=== PATIENT | female | born 1965 | race African-American/Black ===

== ENCOUNTER 2022-01-31 18:11 | Observation (INO) | payer OTHER, SELFPAY ==
--- NOTE | ~2022-01-31 | CT_ITS ---
EXAMINATION: CT brain wo con DATE: 01/31/2022 18:16 INDICATION: Stroke protocol presenting with altered mental status and slurred speech TECHNIQUE: Computed tomography (CT) of the head was performed without intravenous contrast. Sagittal and coronal reconstructions were performed. The mA was adjusted according to patient size. Iterative reconstruction technique was employed. The dose-length product was 605.33 mGy-cm. COMPARISON: None FINDINGS: No acute intracranial hemorrhage, acute infarction or abnormal extra axial fluid collection. Ventricl es are normal and symmetric. No mass/mass effect. The orbits, paranasal sinuses and mastoid air cells are normal. IMPRESSION: 1. No acute intracranial process. Reviewed, dictated and finalized at location A. UREMENT TECHNICIAN
--- NOTE | ~2022-01-31 | CT_ITS ---
EXAMINATION: CT diagnostic chest w con DATE: 01/31/2022 19:25 INDICATION: chest pain TECHNIQUE: Computed tomography (CT) of the chest was performed with 75 mL Omnipaque-350 intravenous c ontrast. Additional 3D reconstructions utilizing coronal maximum intensity projection (MIP) were perf ormed. Automated exposure control and iterative reconstruction technique were employed. The dose-marilyn th product was 747.35 mGy-cm. COMPARISON: None FINDINGS: Small lung lungs with mild respiratory motion and subsegmental atelectasis at the bilateral lung base s. No pneumonia, pulmonary edema, pleural effusion or pneumothorax. Mild cardiomegaly. No pericardial effusion. Thoracic aorta is normal in caliber with no aneurysm or dissection. No pathologically enla rged thoracic lymphadenopathy. Small sliding-type hiatal hernia. Visualized upper abdomen is otherwis e unremarkable. Moderate to severe thoracic spondylosis. IMPRESSION: 1. No aortic aneurysm/dissection or acute cardiopulmonary disease. 2. Mild subsegmental atelectasis at the lung bases likely due to partial expiratory phase of imaging. 3. Small sliding-type hiatal hernia. Reviewed, dictated and finalized at location A. AL ARCHITECT IMPRESSION: 1. No aortic aneurysm/dissection or acute cardiopulmonary disease. 2. Mild subsegmental atelectasis at the lung bases likely due to partial expira tory phase of imaging. 3. Small sliding-type hiatal hernia.
--- NOTE | ~2022-01-31 | NM_ITS ---
EXAMINATION: NM alvaro stress w perfusion DATE: 02/02/2022 14:53 INDICATION: Abnormal echocardiogram TECHNIQUE: Rest images were obtained following intravenous administration of 10 mCi Tc99m tetrofosmin (Myoview). The patient was infused intravenously with Lexiscan (Regadenoson). Then, 31.2 mCi Tc99m t etrofosmin (Myoview) was administered intravenously, and stress images were obtained in supine positi on. Additional post stress images were obtained in the prone position. Data was reconstructed into sh ort axis and horizontal and vertical long axis SPECT images. Gated SPECT images were also obtained. COMPARISON: None. FINDINGS: There is no definite reversible or fixed perfusion abnormality to suggest ischemia or infar ction. There is normal left ventricular chamber size, wall motion and ejection fraction. Left ventr icular ejection fraction measures 57%. IMPRESSION: 1. Normal myocardial perfusion at rest and during stress. 2. Left ventricular ejection fraction measuring 57%. Reviewed, dictated and finalized at location A. E CLOSER
--- NOTE | ~2022-01-31 | XR_ITS ---
EXAMINATION: XR chest 1V portable DATE: 01/31/2022 18:56 INDICATION: Chest pain. Facial droop. TECHNIQUE: frontal view of the chest was obtained. COMPARISON: Chest radiograph dated 03/11/2009 FINDINGS: Mild bilateral infrahilar opacities. No pleural effusion or pneumothorax. The cardiomediastinal silho uette is within normal limits for AP technique and accounting for decreased lung volumes. IMPRESSION: 1. Mild bilateral infrahilar opacities which could represent bronchovascular crowding and atelectasis due to the decreased lung volumes, mild pulmonary edema or pneumonia. Reviewed, dictated and finalized at location A. KING MACHINE OPERATOR IMPRESSION: 1. Mild bilateral infrahilar opacities which could represent bronchovascular cr owding and atelectasis due to the decreased lung volumes, mild pulmonary edema or pneumonia.
--- NOTE | ~2022-01-31 | MR_ITS ---
EXAMINATION: MR brain/brain stem wo con EXAM DATE: 02/01/2022 12:34 INDICATION: Abnormal speech/Blurry vision. TECHNIQUE: Magnetic resonance imaging (MRI) of the brain/brain stem obtained without contrast. Dalila al T1, axial diffusion, gradient echo (T2*), T1, T2, FLAIR sequences obtained. Correlation is made t o brain carotid CT from 01/31/2022. FINDINGS: There are no areas of restricted diffusion to suggest acute infarction. There is no acute hemorrhage seen on the T2*, a hemosiderin sensitive sequence. No intraparenchymal brain mass. The ve ntricles are normal in size. There are no extra-axial collections. Flow voids are seen in the cereb ral arteries on the T2-weighted sequences consistent with their expected patency. The orbits are unr emarkable. Soft tissue is unremarkable. IMPRESSION: 1. Unremarkable brain MRI examination. Reviewed, dictated and finalized at location A. OR MEDICAL DIRECTOR
--- NOTE | ~2022-01-31 | CT_ITS ---
EXAMINATION: CTA BRAIN/CAROTID DATE: 01/31/2022 19:27 INDICATION: Slurred speech and facial droop TECHNIQUE: Computed tomographic angiography (CTA) of the head and neck was performed with 100 mL Omni paque-350 intravenous contrast. Multiplanar reconstructions and maximum intensity projection 3D-recon structions of the carotid arteries and of the intracranial arteries were created by the technologist on a separate workstation. Automated exposure control and iterative reconstruction technique were emp loyed.The dose-length product was 1172.55 mGy-cm. COMPARISON: None. FINDINGS: Carotid arteries: There is minimal atherosclerotic plaque with 0% stenosis of the right carotid bulb relative to normal distal artery lumen diameter (NASCET criteria). There is no evident atherosclerotic plaque with 0% s tenosis of the left carotid bulb relative to normal distal artery lumen diameter. Moderate disc heigh t loss at C5-C6 with ossification along the posterior longitudinal ligament this level resulting in m ild central canal stenosis. Otherwise minimal cervical spondylosis. Mild to moderate spondylosis in t he upper thoracic spine. Intracranial arteries There is no hemodynamically significant stenosis in the vertebral, basilar and internal carotid arter ies. Vertebral arteries are codominant. There are no aneurysms identified. Both A1 and P1 segments a re patent. There are also patent bilateral posterior to indicating arteries. Cerebral arterial arbori zation appears symmetric. IMPRESSION: 1. 0% stenosis of the left and right carotid bulbs relative to normal distal artery lumen diameter (N ASCET criteria). 2. Normal cerebral CT angiogram. Reviewed, dictated and finalized at location A. LOADING MACHINE ADJUSTER IMPRESSION: 1. 0% stenosis of the left and right carotid bulbs relative to normal distal ar pranay lumen diameter (NASCET criteria). 2. Normal cerebral CT angiogram.
[2022-01-31 18:15] VITALS: BP 181/92; PULSE 96; RESP 18; O2SAT 98
[2022-01-31 18:18] VITALS: BP 181/92; PULSE 96; RESP 18; TEMP 36.9; O2SAT 100
--- NOTE | 2022-01-31 18:22 | ED.GENADULT ---
HPI - General Adult General Chief complaint: Neuro Symptoms/Deficit Stated complaint: htn/garbled speech Source: RN notes reviewed History of Present Illness HPI narrative: Patient presents emergency department from work via EMS for chest pain. Patient states that approximately at 1500 today she began to not feel well she states she had some tightness in her midsternal chest and at that time she gone and told me where she not feel well and taking her blood pressure noted to be elevated there is also concerned that at one point the patient did have some slurred speech however that is resolved EMS was called and the patient was noted to have normal speech with no focal deficits at that time and was complained of chest pain. At that time the patient was transferred for further evaluation .. The patient was noted to have elevated blood pressure and denies a history of elevated blood pressure. This time she notes midsternal chest pressure described as a tightness that does not radiate. Patient notes generalized weakness but notes that she has no unilateral weakness. States she has been under increased stress that she has a daughter with disabilities at home has been needing increased care. Patient denies any fevers or chills vision changes shortness of breath abdominal pain nausea vomiting Related Data Allergies Allergy/AdvReac Type Severity Reaction Status Date / Time No Known Allergies Allergy Verified 01/31/22 18:23 Review of Systems Review of Systems: Gen.: Denies fevers or chills Eyes: Denies eye pain or visual change ENT: Denies congestion Respiratory: Denies shortness of breath or cough CV: Patient reports chest GI: Denies abdominal pain nausea, emesis or diarrhea Musculoskeletal: Denies back pain or muscle pain Neuro: Denies numbness, tingling, weakness or focal weakness slurred speech per [facility] Skin: Denies rash Except as documented, all other systems reviewed and negative [facility] Past Medical History Medical History (Updated 01/31/22 @ 20:33 by Geronimo Bo DO) Patient denies significant medical history Social History Social History (Updated 01/31/22 @ 20:31 by Geronimo Bo DO) Smoking status: Never smoker Exam Narrative: APPEARANCE: No acute distress, nontoxic, resting in bed HEENT: Normocephalic, atraumatic, OMM, EYES: PERRL, EOMI NECK: Supple, nontender, full range of motion without pain, no meningismus RESPIRATORY: No respiratory distress, clear to auscultation bilaterally with no rhonchi wheezing or rales CARDIOVASCULAR: RRR s murmur ABDOMINAL: Soft, nontender, nondistended MUSCULOSKELETAL: Moves all extremities. No clubbing, cyanosis or edema. NEURO: A and O ?3, following commands, speech normal, no facial droop, muscle strength 4 out of 5 in the bilateral upper extremities and 4 out of 5 in the bilateral lower extremities, no pronator drift SKIN:: Warm, dry. Normal Color PSYCHIATRIC: Normal affect/mood Course Course Emergency Course: She states she is feeling much better following Ativan moving all extremities with no difficulty. States chest pain is resolved On repeat exams patient's muscle strength is 5 out of 5 in bilateral upper and lower extremities patient continues to have no slurred speech no facial droop patient continues to have no pronator drift sensation is equal bilaterally and the arms and the legs Discussed Dr. Rich presentation work-up agrees with admission at this time Discussed with patient and family results of workup and diagnosis. Discussed need for admission. Patient and family understand and agree to current treatment plan Vital Signs Vital signs: Vital Signs Pulse Rate 96 01/31/22 18:15 Respiratory Rate 18 01/31/22 18:15 Blood Pressure 181/92 H 01/31/22 18:15 Pulse Oximetry 98 01/31/22 18:15 Temperature 98.4 F 01/31/22 18:18 Pulse Rate 86 01/31/22 19:50 Respiratory Rate 16 01/31/22 19:50 Blood Pressure 160/78 H 01/31/22 19:50 Pulse Ox
[2022-01-31 18:24] LABS: Glucose Point of Care 114 mg/dl (65-105)
--- NOTE | 2022-01-31 18:28 | ECG_ITS ---
Measurements Intervals [place] Rate: 103 P: 44 WA: 140 QRS: 9 QRSD: 97 T: 25 QT: 348 QTc: 457 Interpretive Statements SINUS TACHYCARDIA POSSIBLE LEFT ATRIAL ENLARGEMENT [-0.1mV P-WAVE IN V1/V2] CANNOT RULE OUT SEPTAL INFARCT, AGE UNDETERMINED BASELINE ARTIFACT ABNORMAL ECG NO PREVIOUS ECG AVAILABLE FOR COMPARISON Electronically Signed On 02-01-2022 14:46:57 WEAPONS AND TACTICS INSTRUCTOR by Ricci Hewitt M.D.
[2022-01-31 18:53] VITALS: BP 154/76; PULSE 92; RESP 20; O2SAT 99
--- NOTE | 2022-01-31 18:55 | PC.NURSE ---
Pt states she has had a hysterectomy.
[2022-01-31 18:57] LABS: Basophils Absolute Auto 0.1 K/mm3 (0.0-0.1); Basophils Percent Auto 0.8 % (0.2-1.2); Eosinophils Absolute Auto 0.1 K/mm3 (0-0.3); Eosinophils Percent Auto 0.8 % (0-4.4); Hemoglobin 12.9 g/dL (12.0-15.0); Immature Granulocyte Absolute 0.04 K/mm3 (0.00-0.031); Immature Granulocyte Percent A 0.4 % (0-0.5); Lymphocytes Absolute Auto 3.49 K/mm3 (0.9-3.2); Lymphocytes Percent Auto 31.3 % (18.3-44.2); Mean Corpuscular HGB Conc 30.7 g/dl (32-36); Mean Corpuscular Hemoglobin 27.6 pg (26-34); Mean Corpuscular Volume 89.9 fl (80-100); Mean Platelet Volume 9.5 fl (7.4-10.4); Monocytes Absolute Auto 1.2 K/mm3 (0.1-0.6); Monocytes Percent Auto 10.5 % (2.6-8.5); Neutrophils Absolute Auto 6.3 K/mm3 (1.3-6.7); Neutrophils Percent Auto 56.2 % (45.5-73.1); Platelet Count Result 433 k/mm3 (150-375); Red Blood Count 4.67 M/mm3 (4.2-5.4); Red Cell Distribution Width 14.6 % (11.5-14.5); White Blood Count 11.1 K/mm3 (4.5-10.0)
[2022-01-31 18:59] LABS: Prothrombin Time 12.4 Seconds (11.1-14.7)
[2022-01-31 19:00] LABS: Partial Thromboplastin Time 23.7 SECONDS (22.3-36.8)
[2022-01-31 19:03] LABS: Alanine Aminotransferase 20 U/L (4-35); Albumin Level 4.7 g/dL (3.5-5.1); Alkaline Phosphatase 87 U/L (38-126); Anion Gap 8 mmol/L (8-16); Aspartate Amino Transferase 29 U/L (14-36); Bilirubin,Total 0.5 mg/dL (0.2-1.3); Blood Urea Nitrogen 16 mg/dL (7-17); Calcium 8.9 mg/dL (8.4-10.2); Carbon Dioxide 28 mmol/L (22-30); Chloride 104 mmol/L (98-107); Estimated CRCL calculation 63 ml/min; Estimated Glomerular Filt Rate > 60; Glucose 106 mg/dL (65-110); Potassium 3.6 mmol/L (3.4-5.0); Sodium 140 mmol/L (137-145)
[2022-01-31 19:05] LABS: Alanine Aminotransferase 21 U/L (4-35); Albumin Level 4.8 g/dL (3.5-5.1); Alkaline Phosphatase 92 U/L (38-126); Anion Gap 7 mmol/L (8-16); Aspartate Amino Transferase 42 U/L (14-36); Bilirubin,Total 0.5 mg/dL (0.2-1.3); Blood Urea Nitrogen 17 mg/dL (7-17); Calcium 8.9 mg/dL (8.4-10.2); Carbon Dioxide 30 mmol/L (22-30); Chloride 103 mmol/L (98-107); Estimated CRCL calculation 63 ml/min; Estimated Glomerular Filt Rate > 60; Glucose 104 mg/dL (65-110); Potassium 3.7 mmol/L (3.4-5.0); Sodium 140 mmol/L (137-145)
[2022-01-31 19:11] LABS: Add Urine Microscopic? YES; Appearance Urine Clear (Clear); Bilirubin Urine Negative (Negative); Blood Urine 1+ (Negative); Color Urine Yellow (Yellow); Glucose Urine UA Negative (Negative); Ketones Urine Negative (Negative); Leukocyte Esterase Ur Negative LEU/UL (Negative); Mucus Urine Rare /lpf; Nitrate Urine Negative (Negative); Protein Urine Negative (Negative); Specific Grav Ur 1.018 (1.001-1.035); Squamous Epithelial Cell Urine Rare /hpf (Few); WBC Urine 0-3 /hpf
[2022-01-31 19:12] LABS: Troponin I < 0.012 ng/mL (0.000-0.034)
[2022-01-31 19:13] LABS: Troponin I < 0.012 ng/mL (0.000-0.034)
--- NOTE | 2022-01-31 19:30 | ECG_ITS ---
Measurements Intervals [place] Rate: 96 P: 39 RI: 165 QRS: 27 QRSD: 97 T: 18 QT: 365 QTc: 461 Interpretive Statements SINUS RHYTHM BASELINE ARTIFACT CANNOT RULE OUT SEPTAL INFARCT, AGE UNDETERMINED ABNORMAL ECG COMPARED TO ECG 01/31/2022 18:20:01 HEART RATE HAS DECREASED Electronically Signed On 02-01-2022 14:51:52 MEDICAL CODING MANAGER by Ricci Hewitt M.D.
--- NOTE | 2022-01-31 19:39 | PC.NURSE ---
Contact info for Gabriel Carrion, pt son, is [phone]
[2022-01-31] MEDS: LORazepam INJ (*CRX) 2 MG/ML VIAL 0.5 MG IV PUSH (19:49)
[2022-01-31 19:50] VITALS: BP 160/78; PULSE 86; RESP 16; O2SAT 97
[2022-01-31 20:20] VITALS: PULSE 81
--- NOTE | 2022-01-31 20:35 | PM.IMHP ---
H&P: HPI History of Present Illness Date/Time: 01/31/22 20:35 Chief Complaint: Speech difficulty. Narrative: This is a 56-year-old female with no significant past medical history. 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 Upon arrival to emergency room patient was back to her usual her blood pressure was still elevated though. Preliminary workup was actually known unrevealing for acute stroke. At the time of my visit patient did state that she has been under a great amount of stress at home for the last 2-3 weeks. Due to family situation. She denies any fevers, any rigors ,any chills, any cough, sputum production ,shortness of breath ,abdominal pain, nausea ,vomiting ,diarrhea, she had a frontal headache earlier in the day. Chest x-ray showed infiltrates in the right lower lobe. Patient has been admitted for further evaluation management and treatment. Review of Systems Review of Systems: Frontal headache, garbled speech, blurry vision. Constitutional: Constitutional: Denies chills, Denies fatigue, Denies fever(s), Denies malaise, Denies night sweats and Denies weakness Eyes: Eyes: Reports blurry vision ENT: Denies dysphagia, Denies vertigo, Denies dizziness, Denies nasal congestion, Denies nasal discharge, Denies nasal obstruction and Denies odynophagia Cardiovascular: Cardiovascular: Reports chest pain at rest, Denies pedal edema, Denies leg edema, Denies lightheadedness, Denies radiating jaw, neck or arm pain, Denies palpitations, Denies dyspnea, Denies dyspnea on exertion, Denies orthopnea and Denies paroxysmal nocturnal dyspnea Respiratory: Respiratory: Denies chest congestion, Denies cough, Denies excessive phlegm production, Denies dyspnea on exertion and Denies wheezing Gastrointestinal: Gastrointestinal: Denies abdominal pain, Denies dyspepsia, Denies heartburn, Denies diarrhea, Denies nausea and Denies vomiting Genitourinary: Genitourinary: Denies dysuria and Denies flank pain Musculoskeletal: Musculoskeletal: Denies arthralgias and Denies joint swelling Integumentary/Breasts: Skin/Breast: Denies rash Neurologic: Reports Abnormal speech present, Denies vertigo, Denies dizziness, Denies syncope, Reports headache(s), Denies focal weakness and Denies Sensory deficit (Neuro) Endocrine: Endocrine: Denies cold intolerance, Denies flushing, Denies heat intolerance, Denies polyphagia, Denies polydipsia and Denies palpitations Hematologic/Lymphatic: Hematologic/Lymphatic: Reports no additional hematologic/lymphatic complaints and Reports as per HPI Allergic/Immunologic: Allergic/Immunologic: Reports no additional allergic/immunologic complaints and Reports as per HPI [facility] Past Medical History Medical History (Updated 02/01/22 @ 03:27 by Thomas Cristobal MD) Patient denies significant medical history Social History Social History (Updated 01/31/22 @ 20:31 by Geronimo Bo DO) Smoking status: Never smoker Alcohol intake: current Drinks per week: 1 Substance use: never Substance use type: does not use Spiritual care concerns: No Meds Home Medications and Allergies Home Medications Medication Instructions Recorded Confirmed Type No Home Medications 01/31/22 01/31/22 History Allergies Allergy/AdvReac Type Severity Reaction Status Date / Time No Known Allergies Allergy Verified 01/31/22 18:23 Vital Signs Vital Signs - 24 hr 01/31/22 18:15 01/31/22 18:18 01/31/22 18:53 Temperature 98.4 F Pulse Rate 96 96 92 Respiratory Rate 18 18 20 Blood Pressure 181/92 H 181/92 H 154/76 H Pulse Oximetry 98 100 99 01/31/22 19:50 Temperature Pulse Rate 86 Respiratory Rate 16 Blood Pressure 160/78 H Pulse
--- NOTE | 2022-01-31 20:54 | PC.NURSE ---
Pt able to hold weigh at side of bed and turn self on cart. Pt reports numbness and tingling to hands.
--- NOTE | 2022-01-31 21:14 | PC.NURSE ---
Faxed sbar to floor.
[2022-01-31 22:00] VITALS: PULSE 93
--- NOTE | 2022-01-31 22:15 | ADMGEN ---
This patient, Bessy Wright, was admitted to IMU Room 200-01. Patient/family oriented to hospital policies and general routines including ID bracelet, bed and alarms, visiting hours, pain management, procedures, bathroom and other care routines, personal items, smoking policy, room service/diet, and visiting hours. Information on how to activate the Rapid Response Team has been discussed. Patient/Family are encouraged to report perceived risks to care and to ask questions if they do not understand what they are told or what they should do.
[2022-01-31 22:16] VITALS: BMI 41.7
[2022-01-31 23:18] LABS: Troponin I < 0.012 ng/mL (0.000-0.034)
[2022-02-01] VITALS (15 sets, daily range): BP systolic 124–150; BP diastolic 65–96; PULSE 75–100; RESP 15–22; TEMP 35.4–36.7; O2SAT 96–100
--- NOTE | 2022-02-01 | ECHO_ITS ---
Patient Info Name: Bessy Wright Age: 56 years : 1965 Gender: Female Ht: 57 in Wt: 192 lbs BSA: 1.93 m2 HR: 86 bpm BP: 136 / 69 mmHg Heart Rhythm: Sinus Rhythm Technical Quality: Fair Exam Date: 02/01/2022 7:48 AM Exam Location: [facility] Pulmonary Patient Status: Outpatient Admit Date: 01/31/2022 Staff Ordering Physician: Thomas Cristobal MD Centerpuncher: Rosaline Johnston RDCS Attending Provider: Thomas Cristobal MD Referring Physician: Levar PRYOR; Exam Type: CA echo doppler color flow Study Info Indications - chest pain/high blood pressure Complete two-dimensional, color flow and Doppler transthoracic echocardiogram is performed. Summary 1. Complete two-dimensional, color flow and Doppler transthoracic echocardiogram is performed. 2. Normal LV size, [id number] LVH, low normal LV systolic function, ejection fraction 50-55%. Anterolateral wall appears mildly hypokinetic. Normal diastolic function. Normal mitral and aortic valve structure. Mild tricuspid and pulmonic regurgitation, RVSP 28 mmHg. Sinus rhythm. Left Ventricle Left ventricular chamber dimension is normal. Left ventricular systolic function is normal, estimated at 50-55%. There is mildly increased left ventricular wall thickness. The left ventricular diastolic function is normal. Right Ventricle Right ventricular chamber dimension is normal. Right ventricular systolic function is normal. Left Atria Left atrial chamber dimension is normal. Right Atria Right atrial chamber dimension is normal. Aortic Valve The aortic valve is normal. There is no aortic valve stenosis. Pulmonic Valve The pulmonic valve is normal. There is mild pulmonic regurgitation. Mitral Valve The mitral valve has normal leaflets. There is no mitral valve regurgitation. Tricuspid Valve The tricuspid valve leaflets are normal. There is mild tricuspid valve regurgitation. Pericardium/Pleural The pericardium appears normal. Inferior Vena Cava Normal inferior vena cava with >50% collapse upon inspiration consistent with normal right atrial pressure, 8 mmHg. Aorta The aortic root size at the sinus of Valsalva is normal. There is mild aortic atherosclerosis. Left Ventricular Outflow Tract Name Value Normal LVOT 2D LVOT Diameter 2.0 cm LVOT Doppler LVOT Peak Gradient 3 mmHg LVOT Mean Gradient 2 mmHg LVOT VTI 15 cm LVOT VTI/AV VTI Ratio 0.6 LVOT Stroke Volume 51 ml LVOT CO 3.5 l/min LVOT CI 1.8 l/min/m2 Pulmonic Valve Name Value Normal RVOT Doppler RVOT Peak Gradient 1 mmHg PV Doppler
[2022-02-01 01:43] LABS: Troponin I < 0.012 ng/mL (0.000-0.034)
[2022-02-01] MEDS: cefTRIAXone 2 GM in SODIUM CHLORIDE 0.9% IV 100 ML 200 ML IVPB (04:20)
[2022-02-01 04:29] LABS: Basophils Absolute Auto 0.1 K/mm3 (0.0-0.1); Basophils Percent Auto 0.9 % (0.2-1.2); Eosinophils Absolute Auto 0.1 K/mm3 (0-0.3); Eosinophils Percent Auto 1.3 % (0-4.4); Hematocrit 38.9 % (37.0-47.0); Hemoglobin 12.1 g/dL (12.0-15.0); Immature Granulocyte Absolute 0.02 K/mm3 (0.00-0.031); Immature Granulocyte Percent A 0.2 % (0-0.5); Lymphocytes Absolute Auto 3.13 K/mm3 (0.9-3.2); Lymphocytes Percent Auto 31.3 % (18.3-44.2); Mean Corpuscular HGB Conc 31.1 g/dl (32-36); Mean Corpuscular Hemoglobin 27.9 pg (26-34); Mean Corpuscular Volume 89.8 fl (80-100); Mean Platelet Volume 9.5 fl (7.4-10.4); Monocytes Absolute Auto 1.1 K/mm3 (0.1-0.6); Monocytes Percent Auto 11.4 % (2.6-8.5); Neutrophils Absolute Auto 5.5 K/mm3 (1.3-6.7); Neutrophils Percent Auto 54.9 % (45.5-73.1); Platelet Count Result 362 k/mm3 (150-375); Red Blood Count 4.33 M/mm3 (4.2-5.4); Red Cell Distribution Width 14.6 % (11.5-14.5)
[2022-02-01 04:53] LABS: Acanthocytes 1+ (NORMAL); Platelet Estimate Adequate (Adequate)
[2022-02-01 05:25] LABS: Anion Gap 9 mmol/L (8-16); Blood Urea Nitrogen 13 mg/dL (7-17); Calcium 8.5 mg/dL (8.4-10.2); Carbon Dioxide 21 mmol/L (22-30); Chloride 108 mmol/L (98-107); Estimated Glomerular Filt Rate > 60; Glucose 133 mg/dL (65-110); Potassium 4.9 mmol/L (3.4-5.0); Sodium 138 mmol/L (137-145)
[2022-02-01] MEDS: amLODIPine BESYLATE 5 MG TABLET PO (08:25)
--- NOTE | 2022-02-01 12:08 | WPDNEUROPN ---
Progress Note: A&P Additional Plan 1.Uncontrolled hypertension 2.brief lasting speech dysfunction could be related to the hypertension but the possibility of the TIA entertained all the studies up until now are unrevealing patient will continue on aspirin along with the antihypertensive medication. 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 Patient past history is negative for smoking, 1 drink per week for alcohol, no substance abuse, no home medications, and initial vital signs in the emergency room were stable except the blood pressure of 181/92 which came down to 154/76, normal BMP normal troponin and normal hepatic enzymes except borderline AST of 42, evaluation included the CT chest diagnostic documenting only small sliding type hiatal hernia with no acute parenchyma toes disease 0% stenosis of the left and right carotid bulb and normal CT angiogram including the cerebral hemispheres, negative CT scan of the head Review of Systems Review of Systems: All systems reviewed & are unremarkable except as noted in HPI and below Exam Narrative: examination today revealed her to be awake alert cooperative in no obvious acute distress, head normocephalic with no cranial bruit ,ear nose throat examination normal ,neck supple with no cervical bruit, no thyromegaly, no lymphadenopathy, heart regular with no murmur ,lungs clear to auscultation with no rhonchi or crepitation ,abdomen is soft with normal bowel sounds no organomegaly, neurologically she was awake alert ,oriented x3, speech nor dysphasic not dysarthric or dysphonic ,pupils round regular, mcwilliams of the vision full, extraocular movement full, face symmetrical, tongue midline, uvula midline motor examination revealed her to have normal strength and tone in upper and lower extremities proximally and distally and deep tendon reflexes 1+ at the biceps triceps knees and ankle plantars were downgoing there was no evidence of sensory or cerebellar deficit. Objective Data Vital Signs Vital Signs: Vital Signs - 24 hr 01/31/22 18:15 01/31/22 18:18 01/31/22 18:53 Temperature 36.9 C Pulse Rate 96 96 92 Respiratory Rate 18 18 20 Blood Pressure 181/92 H 181/92 H 154/76 H Pulse Oximetry 98 100 99 01/31/22 19:50 01/31/22 20:20 01/31/22 22:00 Temperature Pulse Rate 86 81 93 Respiratory Rate 16 Blood Pressure 160/78 H Pulse Oximetry 97 02/01/22 00:00 02/01/22 02:00 02/01/22 04:00 Temperature 35.6 C L 35.4 C L Pulse Rate 81 83 87 Respiratory Rate 16 16 Blood Pressure 150/86 H 136/69 Pulse Oximetry 96 100 02/01/22 06:00 02/01/22 07:57 02/01/22 08:00 Temperature 35.8 C L Pulse Rate 86 100 83 Respiratory Rate 22 H 18 Blood Pressure 145/84 H Pulse Oximetry 100 02/01/22 10:00 02/01/22 12:00 Temperature 36.7 C Pulse Rate 97 91 Respiratory Rate 15 Blood Pressure 124/65 Pulse Oximetry 99 Intake/Output Intake/Output: Intake & Output 01/29/22 01/30/22 01/31/22 02/01/22 23:59 23:59 23:59 23:59 Intake Total 590 Balance 590 Meds/Results Medications: Active Medications Generic Name Dose Route Start Last Admin Trade Name Freq PRN Reason Stop Dose Admin Amlodipine Besylate 5 mg 02/01/22 09:00 02/01/22 08:25 Amlodipine Besylate 5 Mg Tablet PO 5 mg QAM DERRELL Administration Aspirin 81 mg
[2022-02-01] MEDS: ASPIRIN 81 MG CHEWABLE TABLET PO (13:57)
[2022-02-01] MEDS: ATORVASTATIN 20 MG TABLET PO (13:57)
--- NOTE | 2022-02-01 15:20 | PM.IMPN ---
Progress Note: A&P Additional Plan 56 years old F with no PMH presented to ER with garbled speech, found to have elevated BP. Admitted with concens for TIA/?hypertensive emergency 1)Uncontrolled HTN+/-?TA: c/w tele Add ASA, Lipitor Neuro checks Await MRI brain, echo Neuro consult Obtain lipid panel and Hemoglobin A1C BP optimization, c/w norvasc ?Anxiety component, add PRN oral ativan Melatonin for sleep PT/OT 2)DVT ppx: SCD 3)?hematuria: Repeat UA in few weeks 4)Code:Full 5)Dispo:pending improvement, ?potential discharge home in AM if ok with Neurology Time Spent With Patient Time with patient: 25 - 35 minutes Subjective Date/time seen: 02/01/22 15:20 Interval history: anxious, denies headache, blurry vision, chest pain Was unable to sleep last night, has some issues at home related to her daughter which seems to be affecting her Review of Systems Review of Systems: All systems reviewed & are unremarkable except as noted in HPI and below Constitutional: Constitutional: Reports no additional constitutional complaints Eyes: Eyes: Reports no additional eye complaints ENT: Reports as per HPI Cardiovascular: Cardiovascular: Reports no additional cardiovascular complaints Respiratory: Respiratory: Reports no additional respiratory complaints Gastrointestinal: Gastrointestinal: Reports no additional gastrointestinal complaints Musculoskeletal: Musculoskeletal: Reports no additional musculoskeletal complaints Neurologic: Reports system reviewed and no additional complaints, except as documented Psychiatric: Psychiatric: Reports anxiety Exam Const: General: no acute distress HENMT: Mouth: Yes moist mucous membranes Eyes: Pupils: Equal, round and reactive pupils present Neck: Neck: supple Resp: Auscultation: clear to auscultation bilaterally Cardio: Rate: regular rate Rhythm: regular rhythm GI: GI Palp: Yes Soft to palpation Auscultation: normal bowel sounds Skin: General skin exam: normal color Neuro: Cognition (Neuro): normal cognition Psych: Mental Status: mental status grossly normal Affect: Sad affect present and Anxious affect present Objective Data Vital Signs Vital Signs: Vital Signs - 24 hr 01/31/22 18:15 01/31/22 18:18 01/31/22 18:53 Temperature 98.4 F Pulse Rate 96 96 92 Respiratory Rate 18 18 20 Blood Pressure 181/92 H 181/92 H 154/76 H Pulse Oximetry 98 100 99 01/31/22 19:50 01/31/22 20:20 01/31/22 22:00 Temperature Pulse Rate 86 81 93 Respiratory Rate 16 Blood Pressure 160/78 H Pulse Oximetry 97 02/01/22 00:00 02/01/22 02:00 02/01/22 04:00 Temperature 96.1 F L 95.8 F L Pulse Rate 81 83 87 Respiratory Rate 16 16 Blood Pressure 150/86 H 136/69 Pulse Oximetry 96 100 02/01/22 06:00 02/01/22 07:57 02/01/22 08:00 Temperature 96.5 F L Pulse Rate 86 100 83 Respiratory Rate 22 H 18 Blood Pressure 145/84 H Pulse Oximetry 100 02/01/22 10:00 02/01/22 12:00 Temperature 98.0 F Pulse Rate 97 86 Respiratory Rate 15 Blood Pressure 124/65 Pulse Oximetry 99 Intake/Output Intake/Output: Intake & Output 01/29/22 01/30/22 01/31/22 02/01/22 23:59 23:59 23:59 23:59 Intake Total 1090 Balance 1090 Meds/Results Medications: Active Medications Generic Name Dose Route Start Last Admin Trade Name Bijanq PRN Reason Stop Dose Admin Amlodipine Besylate 5 mg 02/01/22 09:00 02/01/22 08:25 Amlodipine Besylate 5 Mg Tablet PO 5 mg QAM [facility] Administration Aspirin 81 mg 02/01/22 08:00 02/01/22 13:57 Aspirin 81 Mg Chewable Tablet PO 81 mg DAILY@0800 DERRELL Administration Atorvastatin Calcium 20 mg 02/01/22 09:00 02/01/22 13:57 Atorvastatin 20 Mg Tablet PO 20 mg DAILY [facility] Administration Melatonin 3 mg 02/01/22 21:00 Melatonin 3 Mg Tablet PO [facility] Perflutren Lipid Microsphere 0 ml 02/01/22 03:07 Perflutren Lipid Microspheres 1.5 Ml Vial Diluted To 10 Ml Total Volume I
[2022-02-01] MEDS: METOPROLOL TARTRATE 6.25 MG TABLET PO (20:58)
[2022-02-01] MEDS: MELATONIN 3 MG TABLET PO (20:58)
[2022-02-02] VITALS (11 sets, daily range): BP systolic 137–160; BP diastolic 73–76; PULSE 66–99; RESP 15–20; TEMP 36.3–36.7; O2SAT 97–100
--- NOTE | 2022-02-02 | EST_ITS ---
Patient Info Name: Bessy Wright Age: 56 years : 1965 Gender: Female Ht: 57 in Wt: 180 lbs BSA: 1.86 m2 HR: 74 bpm BP: 119 / 81 mmHg Heart Rhythm: Sinus Rhythm Exam Date: 02/02/2022 12:24 PM Exam Location: [facility] Stress Patient Status: Inpatient Admit Date: 01/31/2022 Staff Ordering Physician: Adam Bailey MD Attending Provider: Refugio Connelly MD Exercise Technologist: Pushpa Grey CT Exercise Physician: Ricci Hewitt MD Exam Type: CA stress alvaro w NM Study Info Indications I27.0 - Primary pulmonary hypertension A regadenoson stress test was performed. Summary 1. No abnormal ST/T wave changes with Lexiscan administration. 2. No arrhythmias were observed during the examination. 3. Please correlate with nuclear medicine images, reported separately. 4. No chest discomfort with stress test. Protocol: Lexiscan Stress ECG Details Stage: REST Duration (min): 0 min : 56 sec HR (bpm): 74 SBP (mmHg): 119 DBP (mmHg): 81 Stage: REST Duration (min): 14 min : 31 sec HR (bpm): 76 SBP (mmHg): 119 DBP (mmHg): 81 Stage: STAGE 1 Duration (min): 0 min : 59 sec HR (bpm): 106 SBP (mmHg): 132 DBP (mmHg): 64 Stage: RECOVERY Duration (min): 1 min : 0 sec HR (bpm): 113 SBP (mmHg): 132 DBP (mmHg): 64 Stage: RECOVERY Duration (min): 2 min : 0 sec HR (bpm): 110 SBP (mmHg): 132 DBP (mmHg): 64 Stage: RECOVERY Duration (min): 3 min : 0 sec HR (bpm): 106 SBP (mmHg): 128 DBP (mmHg): 71 Stage: RECOVERY Duration (min): 3 min : 2 sec HR (bpm): 105 SBP (mmHg): 128 DBP (mmHg): 71 Rest HR: 76 bpm Peak HR: 118 bpm Rest Sys BP: 119 mmHg Peak Sys BP: 132 mmHg Max Pred HR: 165 bpm % Max Pred HR: 72 % Target HR: 140 bpm Max RPP: 15,576 bpm*mmHg BP Response: Normal blood pressure response Termination Reason: Completed protocol Cardiac Symptoms: None Total Time: 1 min : 0 sec Rest Rodriguez BP: 81 mmHg Peak Rodriguez BP: 64 mmHg Total Dose: 0.4 mg Resting ECG Normal sinus rhythm. Cannot rule out septal infarction, age indeterminate. Stress ECG No abnormal ST/T wave changes with Lexiscan administration. Arrhythmias No arrhythmias were observed during the examination. Report Signatures
[2022-02-02 05:08] LABS: Basophils Absolute Auto 0.1 K/mm3 (0.0-0.1); Basophils Percent Auto 0.8 % (0.2-1.2); Eosinophils Absolute Auto 0.1 K/mm3 (0-0.3); Eosinophils Percent Auto 1.6 % (0-4.4); Hematocrit 40.2 % (37.0-47.0); Hemoglobin 12.5 g/dL (12.0-15.0); Immature Granulocyte Absolute 0.04 K/mm3 (0.00-0.031); Immature Granulocyte Percent A 0.5 % (0-0.5); Lymphocytes Absolute Auto 2.43 K/mm3 (0.9-3.2); Lymphocytes Percent Auto 30.7 % (18.3-44.2); Mean Corpuscular HGB Conc 31.1 g/dl (32-36); Mean Corpuscular Hemoglobin 27.3 pg (26-34); Mean Corpuscular Volume 87.8 fl (80-100); Mean Platelet Volume 9.2 fl (7.4-10.4); Monocytes Absolute Auto 0.8 K/mm3 (0.1-0.6); Monocytes Percent Auto 10.5 % (2.6-8.5); Neutrophils Absolute Auto 4.4 K/mm3 (1.3-6.7); Neutrophils Percent Auto 55.9 % (45.5-73.1); Platelet Count Result 365 k/mm3 (150-375); Red Blood Count 4.58 M/mm3 (4.2-5.4); Red Cell Distribution Width 14.5 % (11.5-14.5); White Blood Count 7.9 K/mm3 (4.5-10.0)
[2022-02-02 05:16] LABS: Anion Gap 6 mmol/L (8-16); Blood Urea Nitrogen 12 mg/dL (7-17); Calcium 8.4 mg/dL (8.4-10.2); Carbon Dioxide 23 mmol/L (22-30); Chloride 105 mmol/L (98-107); Cholesterol 144 mg/dL (0-200); Estimated Glomerular Filt Rate > 60; Glucose 119 mg/dL (65-110); HDL Direct 49 mg/dL; Potassium 4.5 mmol/L (3.4-5.0); Sodium 134 mmol/L (137-145); Triglycerides 81 mg/dL (<150)
[2022-02-02 05:22] LABS: LDL Cholesterol Direct 56 mg/dL
[2022-02-02 05:56] LABS: Hemoglobin A1C 6.1 % (<5.7)
[2022-02-02] MEDS: METOPROLOL TARTRATE 6.25 MG TABLET PO (08:28)
[2022-02-02] MEDS: ATORVASTATIN 20 MG TABLET PO (08:29)
[2022-02-02] MEDS: amLODIPine BESYLATE 5 MG TABLET PO (08:29)
[2022-02-02] MEDS: ASPIRIN 81 MG CHEWABLE TABLET PO (08:29)
--- NOTE | 2022-02-02 08:52 | PM.CNCAR ---
Assessment and Plan Additional Plan This is a 56-year-old black female admitted to the hospital not feeling well yesterday felt found to be very hypertensive and has been treated appropriately with improvement in her blood pressure. By report she was having some speech slurring that was creating concern yesterday she does not recall or does not admit to those symptoms today. She has obviously been under a lot of stress at home caring for a disabled daughter. The cardiac concern would be the possibility of subclinical coronary artery disease since my partner interpreted the anterior wall of her LV to be appear hypodynamic on echo. We should screen her for evidence of coronary disease. I believe given her presentation and arthritis we should perform a Lexiscan nuclear stress test. In my opinion that could certainly be done as an outpatient. It is the patient's preference however to do this as an inpatient if possible. I will order the exam for today. She has not yet eaten breakfast at the time of this consultation Adam Bailey MD [facility] History of Present Illness History of Present Illness Consult date/time: 02/02/22 08:52 Consult reason: Other (Wall motion abnormality reported on echo) Reason For Visit: chest pain, slurred speech-resolved Narrative: This is a 56-year-old woman I am seeing at the request of the hospitalist because of an abnormal echocardiogram. She was admitted to the hospital yesterday not feeling well brought here from work and found to have be significantly hypertensive. 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 She is denying those complaints at this time to me. In any event when she was seen in the emergency room she was hypertensive. She was placed on amlodipine at a small dose of metoprolol. Her blood pressure is now improved. She had echocardiogram ordered in that setting. The study was interpreted by my partner as showing some hypokinesis of the anterior/anteroseptal segment of the left ventricle with an overall normal ejection fraction. Her 12 lead electrocardiogram to also does show some anterior precordial Q-waves. In this setting I have been asked to see her in consultation. She says she does not generally experience any symptoms of chest pain pressure or heaviness. She is able to carry on her daily activities without causing any symptoms of chest discomfort or dyspnea. 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 She does have significant arthritis in her knees and is not able to walk vigorously or for long distances. She is denying any symptoms of orthopnea PND or accumulating edema. She feels relatively well this morning. She says she has not seen a physician for medical checkup in something like 10-15 years. She is a lifelong nonsmoker does no knowledge of previous hypertension diabetes or dyslipidemia. There is no family history of prevalent coronary artery disease. She reports to be under severe stress at home because she is caring for a disabled daughter who unfortunately was paralyzed following a motor vehicle accident. Review of Systems Constitutional: Constitutional: Reports no additional constitutional complaints Eyes: Eyes: Reports no additional eye complaints ENT: Reports system reviewed and no additional complaints, except as documented Cardiovascular: Cardiovascular: Reports no additional cardiovascular complaints Respiratory: Respiratory: Reports no additional respiratory complaints Gastrointestinal: Gastrointestinal: Reports no additional gastrointestinal complaints Musculoskeletal: Musculoskeletal: Reports arthralgias Integumentary/Breasts: Skin/Breast: Reports system reviewed and no additional complaints, except as docu Neurologic: Reports as per HPI Endocrine: Endocrine: Reports no additional endocrine complaints Hematologic/Lymphatic:
--- NOTE | 2022-02-02 09:59 | PM.IMPN ---
Progress Note: A&P Assessment and Plan (1) Uncontrolled hypertension: Code(s): I10 - Essential (primary) hypertension Status: Acute (2) Speech disturbance: Code(s): R47.9 - Unspecified speech disturbances Status: Acute (3) Infiltrate of lung present on chest x-ray: Code(s): R91.8 - Other nonspecific abnormal finding of lung field Status: Acute Additional Plan 56 years old F with no PMH presented to ER with garbled speech, found to have elevated BP. Admitted with concens for TIA/?hypertensive emergency # Uncontrolled HTN Started on amlodipine blood pressure has improved compared to admission # speech disturbance Head CT with no acute intracranial process CTA head and neck with no significant carotid artery stenosis and normal cerebral CT angiogram. C/w tele Echo 02/01/2022 [id number] LVH low normal LV systolic function EF 50-55% anterolateral wall appears mildly hypokinetic. Normal diastolic function. Added on ASA, Lipitor Neuro checks Noted borderline diabetes with hemoglobin A1c of 6.1 Troponin negative x2 LDL 56 Brain MRI unremarkable Neurology consulted: Suspect related to hypertension BP optimization, c/w norvasc ?Anxiety component, add PRN oral ativan Melatonin for sleep PT/OT # DVT ppx: SCD # abnormal chest x-ray with mild bilateral infrahilar opacities which could represent bronchovascular crowding and atelectasis due to decreased lung volumes, mild pulmonary edema or pneumonia CT chest was done showed mild subsegmental atelectasis at the lung bases likely due to partial expiratory phase of imaging without any acute cardiopulmonary disease including aortic aneurysm or dissection. Small sliding-type hiatal hernia is noted. # abnormal echo: Plan for stress test today. If okay will send her home later today #?hematuria: Repeat UA in few weeks # Code:Full # Dispo: Subjective Date/time seen: 02/02/22 09:59 Interval history: HPI: This is a 56-year-old female with no significant past medical history. 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 Upon arrival to emergency room patient was back to her usual her blood pressure was still elevated though. Preliminary workup was actually known unrevealing for acute stroke. At the time of my visit patient did state that she has been under a great amount of stress at home for the last 2-3 weeks. Due to family situation. She denies any fevers, any rigors ,any chills, any cough, sputum production ,shortness of breath ,abdominal pain, nausea ,vomiting ,diarrhea, she had a frontal headache earlier in the day. Chest x-ray showed infiltrates in the right lower lobe. Patient has been admitted for further evaluation management and treatment. 02/02/2022 feels well no new complaints no chest pain shortness of breath ambulating okay Review of Systems Review of Systems: All systems reviewed & are unremarkable except as noted in HPI and below Exam Narrative: Const: General: no acute distress, comfortable HENMT: Mouth: Yes moist mucous membranes Eyes: Pupils: Equal, round and reactive pupils present Neck: Neck: supple, nontender Resp: Auscultation: clear to auscultation bilaterally, no respiratory distress Cardio: Rate: regular rate Rhythm: regular rhythm GI: GI Palp: Yes Soft to palpation Auscultation: normal bowel sounds Skin: General skin exam: normal color, no lesions Neuro: Cognition (Neuro): normal cognition no focal motor deficits Psych: Mental Status: mental status grossly normal Affect: Normal Objective Data Vital Signs Vital Signs: Vital Signs - 24 hr 02/01/22 10:00 02/01/22 12:00 02/01/22 14:00 Temperature 98.0 F
--- NOTE | 2022-02-02 11:16 | PCCCNOTE ---
On 02/02/22, the student, [Joanne Cruz], provided care and [email or web address]. I have reviewed the student's documentation and agree with the findings.
--- NOTE | 2022-02-02 15:55 | PM.DS ---
DS: Admitting Diagnosis Discharge Date 02/02/2022 Admitting Diagnosis speech distrubatnce, htn DS: Discharge Diagnosis Discharge Diagnosis (1) Uncontrolled hypertension: Code(s): I10 - Essential (primary) hypertension Status: Acute (2) Speech disturbance: Code(s): R47.9 - Unspecified speech disturbances Status: Acute (3) Infiltrate of lung present on chest x-ray: Code(s): R91.8 - Other nonspecific abnormal finding of lung field Status: Acute DS: Summary Hospital Course Hospital Course: 56 years old F with no PMH presented to ER with garbled speech, found to have elevated BP. Admitted with concens for TIA/?hypertensive emergency # Uncontrolled HTN Started on amlodipine blood pressure has improved compared to admission. also on metoprolol. will continue metoprolol and amlodipine at discahrge. fu with pcp for further titration. bp improved with current regimen. # speech disturbance Head CT with no acute intracranial process CTA head and neck with no significant carotid artery stenosis and normal cerebral CT angiogram. C/w tele Echo 02/01/2022 [id number] LVH low normal LV systolic function EF 50-55% anterolateral wall appears mildly hypokinetic. Normal diastolic function. Added on ASA, Lipitor Neuro checks Noted borderline diabetes with hemoglobin A1c of 6.1 Troponin negative x2 LDL 56 well controllled. Brain MRI unremarkable Neurology consulted: Suspect related to hypertension BP optimization, c/w norvasc since LDL well controlled, will discontinue lipitor at discharge. # DVT ppx: SCD # abnormal chest x-ray with mild bilateral infrahilar opacities which could represent bronchovascular crowding and atelectasis due to decreased lung volumes, mild pulmonary edema or pneumonia CT chest was done showed mild subsegmental atelectasis at the lung bases likely due to partial expiratory phase of imaging without any acute cardiopulmonary disease including aortic aneurysm or dissection. Small sliding-type hiatal hernia is noted. # abnormal echo:cardiology consulted. s/p stress test 02/02/2022 which was normal. fu with cardiology as op basis. # ?hematuria: Repeat UA in few weeks # Code:Full # Dispo:dc home today . fu closely as op basis. Time Spent with Patient Time attestation: Total time spent providing and/or coordinating discharge services: Exam Narrative: Const: General: no acute distress, comfortable HENMT: Mouth: Yes moist mucous membranes Eyes: Pupils: Equal, round and reactive pupils present Neck: Neck: supple, nontender Resp: Auscultation: clear to auscultation bilaterally, no respiratory distress Cardio: Rate: regular rate Rhythm: regular rhythm GI: GI Palp: Yes Soft to palpation Auscultation: normal bowel sounds Skin: General skin exam: normal color, no lesions Neuro: Cognition (Neuro): normal cognition no focal motor deficits Psych: Mental Status: mental status grossly normal Affect: Normal DS: Data Data Completed and Pending Completed studies during hospitalization: Exam Type: CA echo doppler color flow Study Info Indications - chest pain/high blood pressure Complete two-dimensional, color flow and Doppler transthoracic echocardiogram is performed. Summary 1. Complete two-dimensional, color flow and Doppler transthoracic echocardiogram is performed. 2. Normal LV size, [id number] LVH, low normal LV systolic function, ejection fraction 50-55%. Anterolateral wall appears mildly hypokinetic. Normal diastolic function. Normal mitral and aortic valve structure. Mild tricuspid and pulmonic regurgitation, RVSP 28 mmHg. Sinus rhythm. Left Ventricle Left ventricular chamber dimension is normal. Left ventricular systolic function is normal, estimated at 50-55%. There is mildly increased left ventricular wall thickness. The left ventricular diastolic function is normal. Right Sammy
== END 2022-02-02 17:50 | disposition home or self-care (01) ==
LOC: ANHED 20:33 → ANHIMU 21:13
PROVIDERS: Internal Medicine; Admitting Provider Internal Medicine; Emergency Provider Emergency Medicine; Visit Provider Internal Medicine
DX: I10 Essential (primary) hypertension (principal); R47.81 Slurred speech; R91.8 Other nonspecific abnormal finding of lung field; R07.9 Chest pain, unspecified; R73.03 Prediabetes; R29.708 NIHSS score 8; R93.1 Abnormal findings on diagnostic imaging of heart and coronary circulation
CPT/HCPCS: 36415; 51701; 70450; 70496; 70498; 70551; 71045; 71260; 78452; 80048; 80053; 80061; 81001; 82948; 83036; 83735; 84484; 85025; 85610; 85730; 87040; 93005; 93017; 93306; 96365; 96366; 96368; 96374; 97161; 97165; 97535; 99285; A9270; A9502; G0378; J0456; J0696; J2060; J2785; Q9967